=== PATIENT | female | born 1975 | race Caucasian/White ===

== ENCOUNTER 2018-05-13 17:52 | Inpatient (IN) | payer OTHER ==
--- NOTE | 2018-05-13 18:00 | PDOC ---
Rapid Medical Evaluation Time Seen by Provider: 05/13/18 17:57 Medical Evaluation: 05/13/18 17:57 43-year-old female with left 2nd finger laceration and crush injury after metal chair folded shut onto her finger. Deep laceration through nailbed, unable to flex at DIP. -Finger xray -Tetanus booster -To FT for further evaluation Discharge Disposition - Diagnosis Finger laceration - Referrals - Patient Instructions - Post Discharge Activity
[2018-05-13] MEDS ORDERED: IBUPROFEN 600 MG TABLET (FP) PO ONE ×2 (18:01→18:05)
[2018-05-13] MEDS ORDERED: DIPHTH,PERTUSS(ACELL),TET 0.5 ML DISP.SYRIN IM ONE (18:01)
--- NOTE | 2018-05-13 18:14 | PDOC ---
History of Present Illness - General Chief Complaint: Laceration Stated Complaint: LACERATION Time Seen by Provider: 05/13/18 17:57 History Source: Patient Exam Limitations: No Limitations - History of Present Illness Initial Comments: Patient is a 43-year-old female who is accompanied by a family member. She states that 20 minutes prior to arrival she got the distal aspect of her second digit right hand caught in a folding metal chair. She now has a laceration and pain to the distal aspect. She is right-hand dominant. Tetanus is not up-to- date. Patient describes the pain as a throb and rates it at a 10 out of 10. Denies taking analgesics prior to arrival. Denies any relieving factors however states that movement exacerbates her discomfort. Pt is currently undergoing oral therapy for breast CA. 05/13/18 18:10 05/13/18 19:09 Past History - Travel Traveled outside of the country in the last 30 days: No Close contact w/someone who was outside of country & ill: No - Past Medical History Allergies/Adverse Reactions: Allergies Allergy/AdvReac Type Severity Reaction Status Date / Time No Known Allergies Allergy Verified 05/13/18 18:00 Home Medications: Ambulatory Orders NK [No Known Home Medication] 05/13/18 COPD: No - Suicide/Smoking/Psychosocial Hx Smoking History: Never smoked Have you smoked in the past 12 months: No Information on smoking cessation initiated: No Hx Alcohol Use: No Drug/Substance Use Hx: No Substance Use Type: None Review of Systems - Review of Systems Able to Perform ROS?: Yes Constitutional: No: Chills, Fever All Other Systems: Reviewed and Negative *Physical Exam - Vital Signs Last Vital Signs Temp Pulse Resp BP Pulse Ox 98.3 F 77 18 143/84 100 05/13/18 18:00 05/13/18 18:00 05/13/18 18:00 05/13/18 18:00 05/13/18 18:00 - Physical Exam Comments: Constitutional: VS stated, pt appears in no apparent distress; sitting in chair. Skin: Warm and dry. Pt has a 3 cm laceration inferior to the nail bed on the second digit right hand. No active bleeding or signs of secondary infection. Head: Normocephalic; atraumatic Eyes: conjunctiva pink without injection or discharge. Throat: Oropharynx with pink and moist mucosa. Lungs: Bilateral breath sounds clear upon auscultation. No adventitious breath sounds. Heart: Regular rate and rhythm, S1/S2 auscultated. No murmurs, rubs, or gallops. No visible pulsations, heaves, or lifts on precordium. Musculoskeletal: Focused on the second digit right hand. Patient has moderate edema. No rotational deformity. Patient has pain upon palpation and decreased sensation to the distal phalanx. Radial pulse present, cap refill less than 2 seconds, sensation intact. Neurologic: Awake, alert. Conversation fluent. Psychiatric: Appropriate affect. 05/13/18 18:12 05/13/18 18:17 ED Treatment Course - RADIOLOGY Radiology Studies Ordered: 05/13/18 18:13 Pt's 2nd digit xray was reviewed by myself as open distal phalanx fracture and fracture of the middle phalanx. 05/13/18 18:50 05/13/18 19:01 - Medications Given in the ED: ED Medications Discontinued Medications Generic Name Dose Route Start Last Admin Trade Name Freq PRN Reason Stop Dose Admin Ibuprofen 600 mg 05/13/18 18:01 05/13/18 18:07 Motrin - PO 05/13/18 18:02 600 mg ONCE ONE Administration Medical Decision Making - Medical Decision Making Patient's tetanus was updated with Tdap IM. Patient was given Motrin at triage by the triage nurse. I do not feel this is ample pain control for the patient. Patient was given 1 Percocet. 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 No signs of anaphylaxis or ALLERGIC reaction. Due to the patient being immunocompromised and having an open fracture, she was given Ancef 2 g IV. She had no signs of anaphylaxis or ALLERGIC reaction. The patient was given Ancef 2 g IV. The patient needs a digital block, appropriate irrigation and suturing with splinting. I will sign out to Romel Garza NP. Please see his addendum. 05/13/18 18:14 05/13/18 19:12 *DC/Admit/Observation/Transfer Diagnosis at time of Disposition: Finger laceration, Open fracture of tuft of distal phalanx of finger - Referrals - Patient Instructions - Post Discharge Activity
[2018-05-13] MEDS ORDERED: ceFAZolin 2 GRAM PREMIX BAG IVPB ONE (20:00)
[2018-05-13 20:47] LABS: BASO % 0.6 % (0-2.0); EOS % 2.1 % (0-4.5); HEMATOCRIT 33.3 % (32.4-45.2); HEMOGLOBIN 11.1 GM/dL (10.7-15.3); LYMPH % 36.4 % (8-40); MCH 28.5 pg (25.7-33.7); MCHC 33.4 g/dl (32.0-36.0); MEAN CELL VOLUME 85.4 fl (80-96); MEAN PLT VOLUME 9.4 fl (7.5-11.1); MONO % 8.1 % (3.8-10.2); NEUT % 52.8 % (42.8-82.8); PLATELET COUNT 212 K/MM3 (134-434); RBC 3.89 M/mm3 (3.60-5.2); RDW 18.7 % (11.6-15.6); WHITE BLOOD COUNT 5.8 K/mm3 (4.0-10.0)
[2018-05-13 21:11] LABS: ALBUMIN 3.5 g/dl (3.4-5.0); ANION GAP 8 MMOL/L (8-16); BLOOD UREA NITROGEN 17 mg/dL (7-18); CALCIUM 8.4 mg/dL (8.5-10.1); CHLORIDE 111 mmol/L (98-107); CO2 24 mmol/L (21-32); CREATININE 0.6 mg/dL (0.55-1.02); GLUCOSE,RANDOM 106 mg/dL (74-106); POTASSIUM 3.9 mmol/L (3.5-5.1); SGOT/AST 28 U/L (15-37); SGPT/ALT 50 U/L (12-78); SODIUM 143 mmol/L (136-145)
[2018-05-13 21:13] LABS: ALK PHOS 117 U/L (45-117); BILIRUBIN,TOTAL 0.1 mg/dL (0.2-1.0); TOT PROT 7.2 g/dl (6.4-8.2)
[2018-05-13 21:14] LABS: INR 0.98 (0.83-1.09); PROTHROMBIN TIME (PATIENT) 11.1 SEC (9.7-13.0)
--- NOTE | 2018-05-13 22:19 | CONSULT ---
Consult Consult Specialty:: Hand and Microsurgery Reason for Consultation:: left index finger open fracture - History of Present Illness Chief Complaint: left index finger fracture History of Present Illness: 43 yo RHD female PMH Breast cancer on tamoxifen, who is accompanied by a family member, presents with She states that 20 minutes prior to arrival she got the distal aspect of her second digit right hand caught in a folding metal chair. She now has a laceration and pain to the distal aspect. She is right-hand dominant. Tetanus is not up-to-date. Patient describes the pain as a throb and rates it at a 10 out of 10. Denies taking analgesics prior to arrival. Denies any relieving factors however states that movement exacerbates her discomfort. Pt is currently undergoing oral therapy for breast CA. We were asked to assess - History Source History Provided By: Patient, Medical Record Limitations to Obtaining History: No Limitations - Past Medical History Additional Medical History: Breast cancer - Alcohol/Substance Use Hx Alcohol Use: No - Smoking History Smoking history: Never smoked Have you smoked in the past 12 months: No - Social History Usual Living Arrangement: With Spouse Place of : Other History of Recent Travel: No Home Medications - Allergies Allergies/Adverse Reactions: Allergies Allergy/AdvReac Type Severity Reaction Status Date / Time No Known Allergies Allergy Verified 05/13/18 18:00 - Home Medications Home Medications: Ambulatory Orders NK [No Known Home Medication] 05/13/18 Review of Systems - Review of Systems Constitutional: denies: Chills, Fever Eyes: denies: Blurred Vision, Recent Change in Vision HENT: reports: Difficult Swallowing Neck: denies: Pain on Movement, Stiffness Cardiovascular: denies: Chest Pain, Palpitations Respiratory: denies: Cough, SOB Gastrointestinal: denies: Abdominal Pain, Bloating, Constipation, Diarrhea Genitourinary: denies: Discharge, Dysuria Breasts: reports: No Symptoms Reported. denies: Pain Musculoskeletal: denies: Muscle Cramps, Muscle Weakness Integumentary: denies: Lesions, Lump, Rash Neurological: denies: Seizure, Syncope Endocrine: denies: Unexplained Weight Gain, Unexplained Weight Loss Hematology/Lymphatic: denies: Easily Bruised, Excessive Bleeding Psychiatric: denies: Anxiety, Depression Physical Exam Vital Signs: Vital Signs Temperature 98.3 F 05/13/18 18:00 Pulse Rate 77 05/13/18 18:00 Respiratory Rate 18 05/13/18 18:00 Blood Pressure 143/84 05/13/18 18:00 O2 Sat by Pulse Oximetry (%) 100 05/13/18 18:00 Vital Signs Period Temp Pulse Resp BP Sys/Smith Pulse Ox Last 24 Hr 98.3 F 77 18 143/84 99-100 Constitutional: Yes: Well Nourished, No Distress, Calm Eyes: Yes: Conjunctiva Clear, EOM Intact HENT: Yes: Atraumatic, Normocephalic Neck: Yes: Supple, Trachea Midline Cardiovascular: Yes: Regular Rate and Rhythm, S1, S2 Respiratory: Yes: Regular, CTA Bilaterally Gastrointestinal: Yes: Normal Bowel Sounds, Soft. No: Tenderness ...Rectal Exam: Yes: Deferred Renal/: No: CVA Tenderness - Left, CVA Tenderness - Right Musculoskeletal: Yes: Joint Stiffness (left index finger), Joint Swelling Extremities: No: Cool, Cyanosis Edema: No Edema: LUE: 2+ Peripheral Pulses WNL: Yes Integumentary: No: Incision, Jaundice Wound/Incision: Yes: Unapproximated (left index finegr DIP joint open fracture) Neurological: Yes: Alert, Oriented Psychiatric: Yes: Alert, Oriented Labs: CBC, BMP 05/13/18 20:30 05/13/18 20:30 Imaging - Results X-ray: Report Reviewed, Image Reviewed (left index finger basalar frature distal phalanx condylar fracture middle phalanx) Problem List - Problems (1) Crushing injury of left index finger, initial encounter Assessment/Plan: 43yo female with left index finger crush dislocation of distal interphalangeal joint with distal and middle phalanx fractures and nail matrix avulsion NPO and IVF hydration IV antibiotics ORIF of left index finger Discussed with patient risks, benefits and alternatives of aforementioned procedure, including but not limited to bleeding, infection, injury to adjacent structures, need for further procedures, ; alternatives include antibiotics , delayed or no surgery - risks of this include failure of nonoperative therapy , sepsis, recurrence, .Patient desires to proceed with operation - will take to OR for above. Informed consent signed for same. Thank you for the opportunity to participate in the care of this patient. Code(s): S67.191A - CRUSHING INJURY OF LEFT INDEX FINGER, INITIAL ENCOUNTER (2) Finger laceration Code(s): S61.219A - LACERATION W/O FB OF UNSP FINGER W/O DAMAGE TO NAIL, INIT Qualifiers: Encounter type: initial encounter Finger: index finger Damage to nail status: with damage Foreign body presence: without foreign body Laterality: left Qualified Code(s): S61.311A - Laceration without foreign body of left index finger with damage to nail, initial encounter (3) Open fracture of tuft of distal phalanx of finger Code(s): S62.639B - DISP FX OF DISTAL PHALANX OF UNSP FINGER, INIT FOR OPN FX (4) Dislocation of distal interphalangeal (DIP) joint of left index finger Code(s): S63.291A - DISLOCATION OF DISTAL INTERPHALN JOINT OF L IDX FNGR, INIT Qualifiers: Encounter type: initial encounter Qualified Code(s): S63.291A - Dislocation of distal interphalangeal joint of left index finger, initial encounter
--- NOTE | 2018-05-13 22:22 | OP ---
Operative Note - Note: Operative Date: 05/13/18 Pre-Operative Diagnosis: open fracture of left index distal and middle phalanx Operation: open reduction and internal fixation of left index distal and middle phalanx with wolfgang wire Findings: displaced and comminuted base fracture distal phalanx and subcondylar middle phalanx. nail matrix disrupted. Implants: 0.45 K wire X1 Post-Operative Diagnosis: Same as Pre-op Surgeon: Burke Miranda Anesthesiologist/RESIDENT CARE COORDINATOR: Nikky Millan Anesthesia: General, Local (0.5% marcaine 10ml digital block) Estimated Blood Loss (mls): 2 Fluid Volume Replaced (mls): 500 Operative Report Dictated: Yes
--- NOTE | 2018-05-13 22:40 | PN ---
Teaching Attending Note Name of Resident: Yung Abbott ATTENDING PHYSICIAN STATEMENT I saw and evaluated the patient. I reviewed the resident's note and discussed the case with the resident. I agree with the resident's findings and plan as documented. SUBJECTIVE: Patient is a 43 year old woman on Tamoxifen for breast cancer presents to the with the complaint that 20 minutes prior to arrival she got the distal aspect of her second digit right hand caught in a folding metal chair. She sustained a laceration and pain to the distal aspect of the finger. Her tetanus immunization is not up-to-date. Patient describes the pain as a throbbing and rates it at a 10 out of 10. Denies taking analgesics prior to arrival. Denies any relieving factors however states that movement exacerbates her discomfort. She is being evaluated by the surgeon. OBJECTIVE: Alert Vital Signs Period Temp Pulse Resp BP Sys/Smith Pulse Ox Last 24 Hr 98.3 F 77 18 143/84 100 HEENT: No Jaundice, eye redness or discharge, PERRLA, EOMI. Normocephalic, atraumatic. External ears are normal and hearing is grossly intact. No nasal discharge. Neck: Supple, nontender. No palpable adenopathy or thyromegaly. No JVD Chest: Good effort. Clear to auscultation and percussion. Heart: Regular. No S3, rub or murmur Abdomen: Not distended, soft, nontender and no HSM. No rebound or guarding. Normoactive bowel sounds. Ext: Peripheral pulses intact. No leg edema. Laceration of distal right 2nd finger with open fracture. Skin: Warm and dry. No petechiae, rash or ecchymosis. Neuro: Alert. Oriented x3. CN 2-12 grossly intact. Sensation grossly intact in all four extremities and DTR are symmetric. Home Medications Medication Instructions Recorded NK [No Known Home Medication] 05/13/18 Abnormal Lab Results 05/13/18 05/13/18 20:30 20:30 RDW 18.7 H Chloride 111 H Calcium 8.4 L Total Bilirubin 0.1 L ASSESSMENT AND PLAN: 1. Right 2nd Finger fracture and laceration - Patient is being taken to the OR for surgery. Got DTP vaccination and antibiotics in the ER. Will continue pain control. 2. DVT prophylaxis - Lovenox 40 mg SQ q 24 hours. 3. Advance directives - Full code
[2018-05-13] MEDS ORDERED: PROPOFOL 20 ML ONE (23:29)
[2018-05-14] MEDS ORDERED: DEXAMETHASONE SOD PHOSPHATE 4 MG/1 ML VIAL ONE
[2018-05-14] MEDS ORDERED: BUPIVACAINE HCL/PF (5 MG/ML) 30 ML VIAL IJ ONE (00:05)
[2018-05-14] MEDS ORDERED: morphine SULFATE 4 MG/ML VIAL IVPUSH PRN (00:54)
[2018-05-14] MEDS ORDERED: ACETAMINOPHEN 325 MG TABLET (FP) PO PRN ×2 (00:55→01:11)
[2018-05-14] MEDS ORDERED: IBUPROFEN 600 MG TABLET (FP) PO PRN (00:55)
[2018-05-14] MEDS ORDERED: AMPICILLIN NA/SULBACTAM NA 3 GM in SODIUM CHLORIDE 100 ML IVPB SCH (02:00)
[2018-05-14] MEDS: AMPICILLIN NA/SULBACTAM NA 3 GM in SODIUM CHLORIDE 100 ML IVPB SCH ×3 (02:36→18:27)
--- NOTE | 2018-05-14 05:09 | HP ---
CHIEF COMPLAINT: Left index finger fracture PCP: Dr. Mejias HISTORY OF PRESENT ILLNESS: 43 y/o, primarily Swedish speaking female with a PMHx of Left breast cancer on Tamoxifen presents after trapping her Left index finger in a metal folding chair. History was partially provided by the patients daughter. Patient pulled out her chair at work and it began to fall/collapse, when she reached to intervene her Left index finger became trapped in the chair. Patient says it started to bleed at that time. It was additionally accompanied by 10/10 sharp pain over the DIP joint that traveled up to her shoulder. Pain increased with movement and she felt loss of feeling in the finger at that time. She did not try anything to relieve the pain and visited the ED. Denies fevers, chills, chest pain, SOB, nausea, vomiting, diarrhea, constipation. Patient was unsure of her Last TDap. She was seen post-op without any complaints. She was not in pain at that time. Of note, Her LMP ended on 04/27. ER course was notable for: (1) XRay left index finger (2) Given percocet x1, TDap, Ancef 2gm (3) Surgery (Dr. 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 [employer] Family History: Denies Allergies No Known Allergies Allergy (Verified 05/13/18 18:00) HOME MEDICATIONS: Home Medications Medication Instructions Recorded NK [No Known Home Medication] 05/13/18 REVIEW OF SYSTEMS CONSTITUTIONAL: Absent: fever, chills, diaphoresis, generalized weakness, malaise, loss of appetite, weight change HEENT: Absent: rhinorrhea, nasal congestion, throat pain, throat swelling, difficulty swallowing, mouth swelling, ear pain, eye pain, visual changes CARDIOVASCULAR: Absent: chest pain, syncope, palpitations, irregular heart rate, lightheadedness , peripheral edema RESPIRATORY: Absent: cough, shortness of breath, dyspnea with exertion, orthopnea, wheezing, stridor, hemoptysis GASTROINTESTINAL: Absent: abdominal pain, abdominal distension, nausea, vomiting, diarrhea, constipation, melena, hematochezia GENITOURINARY: Absent: dysuria, frequency, urgency, hesitancy, hematuria, flank pain, genital pain MUSCULOSKELETAL: Present: Left Index finger pain, Joint swelling Absent: myalgia, arthralgia, back pain, neck pain SKIN: Absent: rash, itching, pallor HEMATOLOGIC/IMMUNOLOGIC: Absent: easy bleeding, easy bruising, lymphadenopathy, frequent infections ENDOCRINE: Absent: unexplained weight gain, unexplained weight loss, heat intolerance, cold intolerance NEUROLOGIC: Absent: headache, focal weakness or paresthesias, dizziness, unsteady gait, seizure, mental status changes, bladder or bowel incontinence PSYCHIATRIC: Absent: anxiety, depression, suicidal or homicidal ideation, hallucinations. PHYSICAL EXAMINATION Vital Signs - 24 hr 05/13/18 05/13/18 05/14/18 18:00 20:30 00:21 Temperature 98.3 F 98.8 F Pulse Rate 77 89 Respiratory 18 20 Rate Blood Pressure 143/84 121/60 O2 Sat by Pulse 100 99 99 Oximetry (%) 05/14/18 05/14/18 05/14/18 00:35 00:50 01:05 Temperature Pulse Rate 78 66 65 Respiratory 16 16 16 Rate Blood Pressure 112/54 112/58 117/59 O2 Sat by Pulse 95 95 95 Oximetry (%) 05/14/18 01:15 Temperature 98.5 F Pulse Rate 65 Respiratory 16 Rate Blood Pressure 111/58 O2 Sat by Pulse Oximetry (%) GENERAL: Awake, alert, and fully oriented, in no acute distress. EYES: PERRL, EOMI THROAT: Oropharynx clear without exudates. Moist mucous membranes. NECK: Supple, No JVD LUNGS: Breath sounds equal, clear to auscultation bilaterally. No wheezes, no crackles. HEART: Regular rate and rhythm, normal S1 and S2 without murmur. ABDOMEN: Soft, nontender, not distended, normoactive bowel sounds, no guarding. UPPER EXTREMITIES: Left Upper extremity wrapped in bandaged post-op, Unable to assess for sensation, pulses or muscle strength. LOWER EXTREMITIES: 2+ pulses, No calf tenderness. 1+ peripheral edema. NEUROLOGICAL: Cranial nerves II-XII intact. Normal speech. SKIN: Warm, dry, no rashes or lesions noted. Laboratory Results - last 24 hr 05/13/18 05/13/18 05/13/18 20:30 20:30 20:30 WBC 5.8 RBC 3.89 Hgb 11.1 Hct 33.3 MCV 85.4 MCH 28.5 MCHC 33.4 RDW 18.7 H Plt Count 212 MPV 9.4 Absolute Neuts (auto) 3.0 Neutrophils % 52.8 Lymphocytes % 36.4 Monocytes % 8.1 Eosinophils % 2.1 Basophils % 0.6 Nucleated RBC % 0 PT with INR 11.10 INR 0.98 Sodium 143 Potassium 3.9 Chloride 111 H Carbon Dioxide 24 Anion Gap 8 BUN 17 Creatinine 0.6 Creat Clearance w eGFR > 60 Random Glucose 106 Calcium 8.4 L Total Bilirubin 0.1 L AST 28 ALT 50 Alkaline Phosphatase 117 Total Protein 7.2 Albumin 3.5 Urine HCG, Qual Blood Type Antibody Screen 05/13/18 05/13/18 20:50 21:40 WBC RBC Hgb Hct MCV MCH MCHC RDW Plt Count MPV Absolute Neuts (auto) Neutrophils % Lymphocytes % Monocytes % Eosinophils % Basophils % Nucleated RBC % PT with INR INR Sodium Potassium Chloride Carbon Dioxide Anion Gap BUN Creatinine Creat Clearance w eGFR Random Glucose Calcium Total Bilirubin AST ALT Alkaline Phosphatase Total Protein Albumin Urine HCG, Qual Negative Blood Type O POSITIVE Antibody Screen Negative Active Medications Acetaminophen (Tylenol -) 650 mg PO Q6H PRN PRN Reason: PAIN LEVEL 1-5 Enoxaparin Sodium (Lovenox -) 40 mg SQ DAILY KAMRAN Ampicillin Sodium/Sulbactam (Sodium 3 gm/ Sodium Chloride) 100 mls @ 200 mls/ hr IVPB Q8H-IV KAMRAN Last Admin: 05/14/18 02:36 Dose: 200 mls/hr Ibuprofen (Motrin -) 600 mg PO Q6H PRN PRN Reason: PAIN LEVEL 1-5 Insulin Aspart (Novolog Vial Sliding Scale -) 1 vial SQ ACHS [facility]; Protocol Morphine Sulfate (Morphine Sulfate) 4 mg IVPUSH Q4H PRN PRN Reason: PAIN LEVEL 7 - 10 ASSESSMENT/PLAN: 43 y/o, primarily Swedish speaking female with a PMHx of Left breast cancer on Tamoxifen presents after trapping her Left index finger in a metal folding chair s/p Left index distal and middle phalanx ORIF POD #0. 1. Left index distal and middle phalanx ORIF POD #0 - Left index finger XRay Done - Surgery (Dr. Miranda) Consulted - TDap given in ED - Ancef 2gm - Pain Control via Tylenol, Motrin, Morphine - Will follow other surgery rec's 2. Left Breast Cancer on Tamoxifen - Will Continue Tamoxifen once med rec'ed 3. FEN - PO Fluids - Lytes WNL - Regular diet 4. PPx - DVT: Lovenox 40mg SQ Daily Dispo: Admit to Med-Surg Visit type - Emergency Visit Emergency Visit: Yes ED Registration Date: 05/13/18 Care time: The patient presented to the Emergency Department on the above date and was hospitalized for further evaluation of their emergent condition. - New Patient This patient is new to me today: Yes Date on this admission: 05/14/18 - Critical Care Critical Care patient: No Hospitalist Screening - Colonoscopy Questionnaire Colonoscopy Questionnaire: Colonoscopy Questionnaire - Patient: 50 - 75 years old and never had a screening colonoscopy: Unknown History of colon or rectal polyps, or CA: Unknown History of IBD, Crohn's disease or UC: Unknown History of abdominal radiation therapy as a child: Unknown - Relative: 1 with colon or rectal CA, or polyps at age 60 or younger: Unknown Colon or rectal CA diagnosed at age 45 or younger: Unknown Multiple relatives with colon or rectal CA: Unknown - Outcome: Screening Result: Negative Screen
[2018-05-14 05:16] VITALS: BMI 41.2
[2018-05-14] MEDS ORDERED: INSULIN SLIDING SCALE (NOVOLOG) 1 VIAL SQ SCH (07:00)
--- NOTE | 2018-05-14 08:16 | PN ---
Progress Note (short form) - Note Progress Note: Post op day#1.S/p ORIF Of left index finger under GA uneventful.Patient stable.No any anesthesia related problem.Patient DC from the anesthesia care.
[2018-05-14] MEDS: ENOXAPARIN NA (PORCINE) 40 MG/0.4 ML DISP.SYRIN SQ SCH (09:54)
[2018-05-14 10:31] LABS: BASO % 0.1 % (0-2.0); HEMATOCRIT 34.9 % (32.4-45.2); HEMOGLOBIN 11.6 GM/dL (10.7-15.3); MCH 28.4 pg (25.7-33.7); MCHC 33.2 g/dl (32.0-36.0); MEAN CELL VOLUME 85.6 fl (80-96); MEAN PLT VOLUME 9.5 fl (7.5-11.1); MONO % 1.6 % (3.8-10.2); NEUT % 85.3 % (42.8-82.8); PLATELET COUNT 215 K/MM3 (134-434); RBC 4.08 M/mm3 (3.60-5.2); WHITE BLOOD COUNT 6.7 K/mm3 (4.0-10.0)
[2018-05-14 10:57] LABS: ALBUMIN 3.4 g/dl (3.4-5.0); ALK PHOS 106 U/L (45-117); ANION GAP 7 MMOL/L (8-16); BILIRUBIN,TOTAL 0.2 mg/dL (0.2-1.0); BLOOD UREA NITROGEN 12 mg/dL (7-18); CALCIUM 8.8 mg/dL (8.5-10.1); CHLORIDE 107 mmol/L (98-107); CO2 24 mmol/L (21-32); CREATININE 0.6 mg/dL (0.55-1.02); GLUCOSE,RANDOM 192 mg/dL (74-106); MAGNESIUM 2.3 mg/dL (1.8-2.4); PHOSPHOROUS 3.3 mg/dL (2.5-4.9); POTASSIUM 4.1 mmol/L (3.5-5.1); SGOT/AST 26 U/L (15-37); SGPT/ALT 44 U/L (12-78); SODIUM 138 mmol/L (136-145); TOT PROT 7.1 g/dl (6.4-8.2)
--- NOTE | 2018-05-14 15:17 | PN ---
Teaching Attending Note Name of Resident: Mohan Siddiqui ATTENDING PHYSICIAN STATEMENT I saw and evaluated the patient. I reviewed the resident's note and discussed the case with the resident. I agree with the resident's findings and plan as documented. SUBJECTIVE: No pain at this point. No fever or chills. pain in upper back last night and this am , bit not at time of evaluation . no fever or chills . OBJECTIVE: NAD. awake and cooperative Lungs: CTAB Lungs: CTAB ext : L hand and forearm in surgical dressing . L thumb out, and can move it and has full sensation to light touch in it . TTP over mid T spine and paraspinal muscles in same area ASSESSMENT AND PLAN: 43 y/o lady with h/o breast cancer s/p lumpectomy , and now on tamoxifen who presented with pain in second toe and was found to have a fracture in middle and distal phalanxes 1- Open fracture of L 2nd middle and distal phalanxes; S/P ORIF - cont IV Abx - case d/w dr. Donovan, MRSA coverage might need to be added. will consult - pain control 2- Upper back pain: likely form positinin bed, but will get xray as has h/o breast cancer 3- H/o breast cancer. confirm and resume her dose of tamoxifen DVT PX: lovenox
--- NOTE | 2018-05-14 15:38 | CON.ID ---
Consult Consult Specialty:: infectious diseases Referred by:: Reason for Consultation:: wound infection - History of Present Illness Chief Complaint: pain i the hand,post op History of Present Illness: 43 yo RHD female PMH Breast cancer on tamoxifen who was admitted because of injry to the finger and suffered a laceration patient was seen by hand surgery and taken to the operating room and it seems pus was drained from the wound post op now patient is doing well. she has been started on unasyn and patient has been stable patient on oral therapy for cancer - History Source History Provided By: Patient, Medical Record Limitations to Obtaining History: Language Barrier - Past Medical History Additional Medical History: Breast cancer - Alcohol/Substance Use Hx Alcohol Use: No - Smoking History Smoking history: Never smoked Have you smoked in the past 12 months: No - Social History Usual Living Arrangement: With Spouse History of Recent Travel: No Home Medications - Allergies Allergies/Adverse Reactions: Allergies Allergy/AdvReac Type Severity Reaction Status Date / Time No Known Allergies Allergy Verified 05/13/18 18:00 - Home Medications Home Medications: Ambulatory Orders Tamoxifen Citrate 05/15/18 Review of Systems - Review of Systems Constitutional: reports: No Symptoms Eyes: reports: No Symptoms HENT: reports: No Symptoms Neck: reports: No Symptoms Cardiovascular: reports: No Symptoms Respiratory: reports: No Symptoms Gastrointestinal: reports: No Symptoms Genitourinary: reports: No Symptoms Musculoskeletal: reports: Other Integumentary: reports: Other Neurological: reports: No Symptoms Endocrine: reports: No Symptoms Hematology/Lymphatic: reports: No Symptoms Psychiatric: reports: No Symptoms Physical Exam Vital Signs: Vital Signs Temperature 99.0 F 05/14/18 15:08 Pulse Rate 83 05/14/18 15:08 Respiratory Rate 18 05/14/18 15:08 Blood Pressure 148/80 05/14/18 15:08 O2 Sat by Pulse Oximetry (%) 98 05/14/18 06:00 Constitutional: Yes: No Distress, Calm Cardiovascular: Yes: Regular Rate and Rhythm Respiratory: Yes: Regular, CTA Bilaterally Gastrointestinal: Yes: Normal Bowel Sounds, Soft Musculoskeletal: Yes: WNL Extremities: Yes: Other Wound/Incision: Yes: Dressing Dry and Intact Neurological: Yes: Alert, Oriented Psychiatric: Yes: Alert, Oriented Labs: CBC, BMP 05/14/18 10:00 05/14/18 10:00 Imaging - Results Chest X-ray: Report Reviewed, Image Reviewed X-ray: Report Reviewed, Image Reviewed Assessment/Plan Problem List - Problems (1) Crushing injury of left index finger, initial encounter Code(s): S67.191A - CRUSHING INJURY OF LEFT INDEX FINGER, INITIAL ENCOUNTER (2) Finger laceration Code(s): S61.219A - LACERATION W/O FB OF UNSP FINGER W/O DAMAGE TO NAIL, INIT Qualifiers: Encounter type: initial encounter Finger: index finger Damage to nail status: with damage Foreign body presence: without foreign body Laterality: left Qualified Code(s): S61.311A - Laceration without foreign body of left index finger with damage to nail, initial encounter (3) Open fracture of tuft of distal phalanx of finger Code(s): S62.639B - DISP FX OF DISTAL PHALANX OF UNSP FINGER, INIT FOR OPN FX (4) Dislocation of distal interphalangeal (DIP) joint of left index finger Code(s): S63.291A - DISLOCATION OF DISTAL INTERPHALN JOINT OF L IDX FNGR, INIT Qualifiers: Encounter type: initial encounter Qualified Code(s): S63.291A - Dislocation of distal interphalangeal joint of left index finger, initial encounter plan continue unasyn will add clinda await for cx report rest as per the team
--- NOTE | 2018-05-14 16:22 | PN ---
Physical Exam: SUBJECTIVE: Patient seen and examined at bedside. No acute complaints s/p ORIF of L index finger. Good appetite. Urinating and passing flatus, no BM as yet. Additionally complains of thoracic spinal pain. OBJECTIVE: Vital Signs Period Temp Pulse Resp BP Sys/Smith Pulse Ox Last 24 Hr 98.3 F-99.3 F 65-89 16-20 111-148/54-84 95-100 GENERAL: A&Ox3, NAD HEAD: NC/AT EYES: PERRLA, EOMI ENT: moist mucous membranes NECK: Trachea midline, full range of motion, supple. LUNGS: Breath sounds equal, clear to auscultation bilaterally, no wheezes, no crackles, no accessory muscle use. HEART: Regular rate and rhythm, S1, S2 without murmur, rub or gallop. ABDOMEN: Soft, nontender, nondistended, normoactive bowel sounds, no guarding, no rebound, no hepatosplenomegaly, no masses. MUSCULOSKELETAL: focal tenderness of T-spine approximately T2-3. EXTREMITIES: 2+ pulses, warm, well-perfused, no edema. Surgical dressing of L distal UE. NEUROLOGICAL: Cranial nerves II through XII grossly intact. Normal speech, gait not observed. PSYCH: Normal mood, normal affect. SKIN: Warm, dry, normal turgor, no rashes or lesions noted Laboratory Results - last 24 hr 05/13/18 05/13/18 05/13/18 20:30 20:30 20:30 WBC 5.8 RBC 3.89 Hgb 11.1 Hct 33.3 MCV 85.4 MCH 28.5 MCHC 33.4 RDW 18.7 H Plt Count 212 MPV 9.4 Absolute Neuts (auto) 3.0 Neutrophils % 52.8 Lymphocytes % 36.4 Monocytes % 8.1 Eosinophils % 2.1 Basophils % 0.6 Nucleated RBC % 0 PT with INR 11.10 INR 0.98 Sodium 143 Potassium 3.9 Chloride 111 H Carbon Dioxide 24 Anion Gap 8 BUN 17 Creatinine 0.6 Creat Clearance w eGFR > 60 POC Glucometer Random Glucose 106 Calcium 8.4 L Phosphorus Magnesium Total Bilirubin 0.1 L AST 28 ALT 50 Alkaline Phosphatase 117 Total Protein 7.2 Albumin 3.5 Urine HCG, Qual Blood Type Antibody Screen 05/13/18 05/13/18 05/14/18 20:50 21:40 05:56 WBC RBC Hgb Hct MCV MCH MCHC RDW Plt Count MPV Absolute Neuts (auto) Neutrophils % Lymphocytes % Monocytes % Eosinophils % Basophils % Nucleated RBC % PT with INR INR Sodium Potassium Chloride Carbon Dioxide Anion Gap BUN Creatinine Creat Clearance w eGFR POC Glucometer 155 Random Glucose Calcium Phosphorus Magnesium Total Bilirubin AST ALT Alkaline Phosphatase Total Protein Albumin Urine HCG, Qual Negative Blood Type O POSITIVE Antibody Screen Negative 05/14/18 05/14/18 10:00 10:00 WBC 6.7 RBC 4.08 Hgb 11.6 Hct 34.9 MCV 85.6 MCH 28.4 MCHC 33.2 RDW 19.0 H Plt Count 215 MPV 9.5 Absolute Neuts (auto) 5.7 Neutrophils % 85.3 H D Lymphocytes % 13.0 D Monocytes % 1.6 L D Eosinophils % 0.0 D Basophils % 0.1 Nucleated RBC % 0 PT with INR INR Sodium 138 Potassium 4.1 Chloride 107 Carbon Dioxide 24 Anion Gap 7 L BUN 12 Creatinine 0.6 Creat Clearance w eGFR > 60 POC Glucometer Random Glucose 192 H Calcium 8.8 Phosphorus 3.3 Magnesium 2.3 Total Bilirubin 0.2 AST 26 ALT 44 Alkaline Phosphatase 106 D Total Protein 7.1 Albumin 3.4 Urine HCG, Qual Blood Type Antibody Screen Active Medications Generic Name Dose Route Start Last Admin Trade Name Freq PRN Reason Stop Dose Admin Acetaminophen 650 mg 05/14/18 01:11 Tylenol - PO Q6H PRN PAIN LEVEL 1-5 Clindamycin HCl 300 mg 05/14/18 18:00 Cleocin - PO Q6HPO KAMRAN Enoxaparin Sodium 40 mg 05/14/18 10:00 05/14/18 09:54 Lovenox - SQ 40 mg DAILY KAMRAN Administration Ampicillin Sodium/Sulbactam 100 mls @ 200 mls/hr 05/14/18 02:00 05/14/18 09: 54 Sodium 3 gm/ Sodium Chloride IVPB 200 mls/hr Q8H-IV KAMRAN Administration Ibuprofen 600 mg 05/14/18 01:11 Motrin - PO Q6H PRN PAIN LEVEL 1-5 Morphine Sulfate 4 mg 05/14/18 01:11 Morphine Sulfate IVPUSH Q4H PRN PAIN LEVEL 7 - 10 ASSESSMENT/PLAN: 43 y/o F w/ PMHx L breast Ca s/p lumpectomy w/o RT on Tamoxifen since Jun 03 admitted for open Fx of left index finger s/p ORIF. #L index finger ORIF POD #0 -Dr. Miranda on case -TDap in ED -On Unasyn, requires 3-[address] Miranda -Tylenol, Motrin -Morphine 4 mg q4 PRN #L Breast Ca on Tamoxifen -thoracic spinal tenderness noted on exam -T-spine XR ordered -MRI T-spine if XR negative -cont Tamoxifen #fasting glucose 155 -HbA1c ordered #FEN -no IVF -lytes wnl -regular diet #DVT PPx -Lovenox 40 SQ daily #dispo -med/surg Visit type - Emergency Visit Emergency Visit: No - New Patient This patient is new to me today: Yes Date on this admission: 05/14/18 - Critical Care Critical Care patient: No
[2018-05-14] MEDS ORDERED: PT OWN MED DRAWER 7, Y5N ONE (18:12)
[2018-05-14] MEDS: CLINDAMYCIN HCL 150 MG CAPSULE (FP) PO SCH (18:27)
--- NOTE | 2018-05-14 19:09 | PN ---
Progress Note, Physician Chief Complaint: left index finger History of Present Illness: 43 yo RHD female PMH Breast cancer on tamoxifen, who is accompanied by a family member, presents with She states that 20 minutes prior to arrival she got the distal aspect of her second digit right hand caught in a folding metal chair. stable post operatively. - Current Medication List Current Medications: Active Medications Acetaminophen (Tylenol -) 650 mg PO Q6H PRN PRN Reason: PAIN LEVEL 1-5 Clindamycin HCl (Cleocin -) 300 mg PO Q6HPO KAMRAN Last Admin: 05/14/18 18:27 Dose: 300 mg Enoxaparin Sodium (Lovenox -) 40 mg SQ DAILY KAMRAN Last Admin: 05/14/18 09:54 Dose: 40 mg Ampicillin Sodium/Sulbactam (Sodium 3 gm/ Sodium Chloride) 100 mls @ 200 mls/ hr IVPB Q8H-IV KAMRAN Last Admin: 05/14/18 18:27 Dose: 200 mls/hr Ibuprofen (Motrin -) 600 mg PO Q6H PRN PRN Reason: PAIN LEVEL 1-5 Morphine Sulfate (Morphine Sulfate) 4 mg IVPUSH Q4H PRN PRN Reason: PAIN LEVEL 7 - 10 - Objective Vital Signs: Vital Signs Temperature 99.0 F 05/14/18 15:08 Pulse Rate 83 05/14/18 15:08 Respiratory Rate 18 05/14/18 15:08 Blood Pressure 148/80 05/14/18 15:08 O2 Sat by Pulse Oximetry (%) 96 05/14/18 09:00 Vital Signs Period Temp Pulse Resp BP Sys/Smith Pulse Ox Last 24 Hr 98.4 F-99.3 F 65-89 16-20 111-148/54-84 95-99 Constitutional: Yes: Well Nourished, No Distress, Calm Eyes: Yes: Conjunctiva Clear, EOM Intact HENT: Yes: Atraumatic, Normocephalic Neck: Yes: Supple, Trachea Midline Cardiovascular: Yes: Regular Rate and Rhythm, S1, S2 Respiratory: Yes: Regular, CTA Bilaterally Gastrointestinal: Yes: Normal Bowel Sounds, Soft. No: Tenderness ...Rectal Exam: Yes: Deferred Genitourinary: No: CVA Tenderness - Left, CVA Tenderness - Right Extremities: No: Cool, Cyanosis Wound/Incision: Yes: Clean/Dry, Well Approximated, Dressing Dry and Intact Labs: CBC, BMP 05/14/18 10:00 05/14/18 10:00 INR, PTT INR 0.98 (0.83-1.09) 05/13/18 20:30 Problem List - Problems (1) Crushing injury of left index finger, initial encounter Assessment/Plan: 43yo female with left index finger crush dislocation of distal interphalangeal joint with distal and middle phalanx fractures and nail matrix avulsion POD#1 s/ p ORIF of left index finger open fractures. Diet as tolerated IV antibiotics per ID encourage incentive spirometry elevation of Arm above the heart Will follow Code(s): S67.191A - CRUSHING INJURY OF LEFT INDEX FINGER, INITIAL ENCOUNTER (2) Finger laceration Code(s): S61.219A - LACERATION W/O FB OF UNSP FINGER W/O DAMAGE TO NAIL, INIT Qualifiers: Encounter type: initial encounter Finger: index finger Damage to nail status: with damage Foreign body presence: without foreign body Laterality: left Qualified Code(s): S61.311A - Laceration without foreign body of left index finger with damage to nail, initial encounter (3) Open fracture of tuft of distal phalanx of finger Code(s): S62.639B - DISP FX OF DISTAL PHALANX OF UNSP FINGER, INIT FOR OPN FX (4) Dislocation of distal interphalangeal (DIP) joint of left index finger Code(s): S63.291A - DISLOCATION OF DISTAL INTERPHALN JOINT OF L IDX FNGR, INIT Qualifiers: Encounter type: initial encounter Qualified Code(s): S63.291A - Dislocation of distal interphalangeal joint of left index finger, initial encounter
[2018-05-14] MEDS: morphine SULFATE 4 MG/ML VIAL IVPUSH PRN (21:28)
[2018-05-15] MEDS: CLINDAMYCIN HCL 150 MG CAPSULE (FP) PO SCH ×5 (00:01→23:28)
[2018-05-15] MEDS ORDERED: PT OWN MED DRAWER 7, Y5N ONE ×2 (01:20→17:08)
[2018-05-15] MEDS: AMPICILLIN NA/SULBACTAM NA 3 GM in SODIUM CHLORIDE 100 ML IVPB SCH ×3 (01:29→17:27)
[2018-05-15] MEDS: morphine SULFATE 4 MG/ML VIAL IVPUSH PRN ×2 (06:37→22:17)
[2018-05-15 07:54] LABS: BASO % 0.5 % (0-2.0); EOS % 0.6 % (0-4.5); HEMATOCRIT 33.2 % (32.4-45.2); LYMPH % 40.4 % (8-40); MCH 28.2 pg (25.7-33.7); MEAN CELL VOLUME 85.4 fl (80-96); MEAN PLT VOLUME 9.2 fl (7.5-11.1); MONO % 6.6 % (3.8-10.2); NEUT % 51.9 % (42.8-82.8); PLATELET COUNT 185 K/MM3 (134-434); RBC 3.89 M/mm3 (3.60-5.2); WHITE BLOOD COUNT 7.3 K/mm3 (4.0-10.0)
[2018-05-15 08:43] LABS: CHLORIDE 109 mmol/L (98-107); SODIUM 139 mmol/L (136-145)
[2018-05-15 08:49] LABS: ANION GAP 7 MMOL/L (8-16); BLOOD UREA NITROGEN 12 mg/dL (7-18); CO2 23 mmol/L (21-32); CREATININE 0.5 mg/dL (0.55-1.02); GLUCOSE,RANDOM 110 mg/dL (74-106)
--- NOTE | 2018-05-15 09:09 | PN ---
Teaching Attending Note Name of Resident: Mohan Siddiqui ATTENDING PHYSICIAN STATEMENT I saw and evaluated the patient. I reviewed the resident's note and discussed the case with the resident. I agree with the resident's findings and plan as documented. SUBJECTIVE: Patient has no fever or chills or shortness of breath, no fever or chills. OBJECTIVE: Vital Signs Temperature 98.8 F 05/15/18 06:00 Pulse Rate 65 05/15/18 06:00 Respiratory Rate 20 05/15/18 06:00 Blood Pressure 102/51 05/15/18 06:00 O2 Sat by Pulse Oximetry (%) 97 05/14/18 21:00 CBCD WBC 7.3 K/mm3 (4.0-10.0) 05/15/18 06:30 RBC 3.89 M/mm3 (3.60-5.2) 05/15/18 06:30 Hgb 11.0 GM/dL (10.7-15.3) 05/15/18 06:30 Hct 33.2 % (32.4-45.2) 05/15/18 06:30 MCV 85.4 fl (80-96) 05/15/18 06:30 MCHC 33.0 g/dl (32.0-36.0) 05/15/18 06:30 RDW 19.0 % (11.6-15.6) H 05/15/18 06:30 Plt Count 185 K/MM3 (134-434) 05/15/18 06:30 MPV 9.2 fl (7.5-11.1) 05/15/18 06:30 CMP Sodium 139 mmol/L (136-145) 05/15/18 06:30 Potassium 4.0 mmol/L (3.5-5.1) 05/15/18 06:30 Chloride 109 mmol/L (98-107) H 05/15/18 06:30 Carbon Dioxide 23 mmol/L (21-32) 05/15/18 06:30 Anion Gap 7 MMOL/L (8-16) L 05/15/18 06:30 BUN 12 mg/dL (7-18) 05/15/18 06:30 Creatinine 0.5 mg/dL (0.55-1.02) L 05/15/18 06:30 Creat Clearance w eGFR > 60 (>60) 08/29/18 06:30 Random Glucose 110 mg/dL (74-106) H 05/15/18 06:30 Calcium 8.0 mg/dL (8.5-10.1) L 05/15/18 06:30 Total Bilirubin 0.2 mg/dL (0.2-1.0) 05/14/18 10:00 AST 26 U/L (15-37) 05/14/18 10:00 ALT 44 U/L (12-78) 05/14/18 10:00 Alkaline Phosphatase 106 U/L (45-117) D 05/14/18 10:00 Total Protein 7.1 g/dl (6.4-8.2) 05/14/18 10:00 Albumin 3.4 g/dl (3.4-5.0) 05/14/18 10:00 Current Medications Generic Name Dose Route Start Last Admin Trade Name Freq PRN Reason Stop Dose Admin Acetaminophen 650 mg 05/14/18 01:11 Tylenol - PO Q6H PRN PAIN LEVEL 1-5 Clindamycin HCl 300 mg 05/14/18 18:00 05/15/18 06:35 Cleocin - PO 300 mg Q6HPO KAMRAN Administration Enoxaparin Sodium 40 mg 05/14/18 10:00 05/14/18 09:54 Lovenox - SQ 40 mg DAILY KAMRAN Administration Ampicillin Sodium/Sulbactam 100 mls @ 200 mls/hr 05/14/18 02:00 05/15/18 01: 29 Sodium 3 gm/ Sodium Chloride IVPB 200 mls/hr Q8H-IV KAMRAN Administration Ibuprofen 600 mg 05/14/18 01:11 Motrin - PO Q6H PRN PAIN LEVEL 1-5 Morphine Sulfate 4 mg 05/14/18 01:11 05/15/18 06:37 Morphine Sulfate IVPUSH 4 mg Q4H PRN Administration PAIN LEVEL 7 - 10 Home Medications Medication Instructions Recorded Tamoxifen Citrate 05/15/18 PE:as per resident's note ASSESSMENT AND PLAN: Patient is a 43 y/o lady with h/o breast cancer s/p lumpectomy on tamoxifen who presented with pain of second toe and was found to have a fracture in middle and distal phalanxes. # Open fracture of 2nd left middle and distal phalanxes; S/P ORIF on cont IV Abx on clindamycin, Unasyn IV, ID on the case dr. Donovan, pain control. # H/o breast cancer. continue tamoxifen DVT PX: lovenox
--- NOTE | 2018-05-15 09:24 | PN ---
Progress Note, Physician Chief Complaint: left index finger History of Present Illness: 43 yo RHD female PMH Breast cancer on tamoxifen, who is accompanied by a family member, presents with She states that 20 minutes prior to arrival she got the distal aspect of her second digit right hand caught in a folding metal chair. stable post operatively. - Current Medication List Current Medications: Active Medications Acetaminophen (Tylenol -) 650 mg PO Q6H PRN PRN Reason: PAIN LEVEL 1-5 Clindamycin HCl (Cleocin -) 300 mg PO Q6HPO KAMRAN Last Admin: 05/15/18 06:35 Dose: 300 mg Enoxaparin Sodium (Lovenox -) 40 mg SQ DAILY KAMRAN Last Admin: 05/14/18 09:54 Dose: 40 mg Ampicillin Sodium/Sulbactam (Sodium 3 gm/ Sodium Chloride) 100 mls @ 200 mls/ hr IVPB Q8H-IV KAMRAN Last Admin: 05/15/18 01:29 Dose: 200 mls/hr Ibuprofen (Motrin -) 600 mg PO Q6H PRN PRN Reason: PAIN LEVEL 1-5 Morphine Sulfate (Morphine Sulfate) 4 mg IVPUSH Q4H PRN PRN Reason: PAIN LEVEL 7 - 10 Last Admin: 05/15/18 06:37 Dose: 4 mg - Objective Vital Signs: Vital Signs Temperature 98.8 F 05/15/18 06:00 Pulse Rate 65 05/15/18 06:00 Respiratory Rate 20 05/15/18 06:00 Blood Pressure 102/51 05/15/18 06:00 O2 Sat by Pulse Oximetry (%) 97 05/14/18 21:00 Vital Signs Period Temp Pulse Resp BP Sys/Smith Pulse Ox Last 24 Hr 98.8 F-99.0 F 65-83 18-20 101-148/51-80 97 Labs: CBC, BMP 05/15/18 06:30 05/15/18 06:30 INR, PTT INR 0.98 (0.83-1.09) 05/13/18 20:30 Problem List - Problems (1) Crushing injury of left index finger, initial encounter Assessment/Plan: 43yo female with left index finger crush dislocation of distal interphalangeal joint with distal and middle phalanx fractures and nail matrix avulsion POD#2 s/ p ORIF of left index finger open fractures. Diet as tolerated IV antibiotics per ID encourage incentive spirometry elevation of Arm above the heart D/C plan on Oral antibiotics Will follow Code(s): S67.191A - CRUSHING INJURY OF LEFT INDEX FINGER, INITIAL ENCOUNTER (2) Finger laceration Code(s): S61.219A - LACERATION W/O FB OF UNSP FINGER W/O DAMAGE TO NAIL, INIT Qualifiers: Encounter type: initial encounter Finger: index finger Damage to nail status: with damage Foreign body presence: without foreign body Laterality: left Qualified Code(s): S61.311A - Laceration without foreign body of left index finger with damage to nail, initial encounter (3) Open fracture of tuft of distal phalanx of finger Code(s): S62.639B - DISP FX OF DISTAL PHALANX OF UNSP FINGER, INIT FOR OPN FX (4) Dislocation of distal interphalangeal (DIP) joint of left index finger Code(s): S63.291A - DISLOCATION OF DISTAL INTERPHALN JOINT OF L IDX FNGR, INIT Qualifiers: Encounter type: initial encounter Qualified Code(s): S63.291A - Dislocation of distal interphalangeal joint of left index finger, initial encounter
[2018-05-15] MEDS: SENNOSIDES 8.6MG TABLET (FP) PO SCH ×2 (09:57→22:18)
[2018-05-15] MEDS: ENOXAPARIN NA (PORCINE) 40 MG/0.4 ML DISP.SYRIN SQ SCH (09:57)
[2018-05-15] MEDS: DOCUSATE SODIUM 100 MG CAPSULE (FP) PO SCH ×2 (09:57→22:18)
[2018-05-15] MEDS: IBUPROFEN 600 MG TABLET (FP) PO PRN ×2 (10:00→17:26)
[2018-05-15] MEDS: INSULIN SLIDING SCALE (NOVOLOG) 1 VIAL SQ SCH ×3 (11:17→22:24)
--- NOTE | 2018-05-15 13:41 | PN ---
Progress Note, Physician History of Present Illness: patient doing well post op no issues - Current Medication List Current Medications: Active Medications Acetaminophen (Tylenol -) 650 mg PO Q6H PRN PRN Reason: PAIN LEVEL 1-5 Clindamycin HCl (Cleocin -) 300 mg PO Q6HPO COUNT INCLUDES THE [facility] Last Admin: 05/15/18 11:48 Dose: 300 mg Docusate Sodium (Colace -) 100 mg PO BID COUNT INCLUDES THE [facility] Last Admin: 05/15/18 09:57 Dose: 100 mg Enoxaparin Sodium (Lovenox -) 40 mg SQ DAILY COUNT INCLUDES THE [facility] Last Admin: 05/15/18 09:57 Dose: 40 mg Ampicillin Sodium/Sulbactam (Sodium 3 gm/ Sodium Chloride) 100 mls @ 200 mls/ hr IVPB Q8H-IV COUNT INCLUDES THE [facility] Last Admin: 05/15/18 09:57 Dose: 200 mls/hr Ibuprofen (Motrin -) 600 mg PO Q6H PRN PRN Reason: PAIN LEVEL 1-5 Last Admin: 05/15/18 10:00 Dose: 600 mg Insulin Aspart (Novolog Vial Sliding Scale -) 1 vial SQ [facility]; Protocol Last Admin: 05/15/18 11:17 Dose: Not Given Morphine Sulfate (Morphine Sulfate) 4 mg IVPUSH Q4H PRN PRN Reason: PAIN LEVEL 7 - 10 Last Admin: 05/15/18 06:37 Dose: 4 mg Senna (Senna -) 1 tab PO BID COUNT INCLUDES THE [facility] Last Admin: 05/15/18 09:57 Dose: 1 tab Tamoxifen Citrate (Tamoxifen Citrate) 20 mg PO DAILY COUNT INCLUDES THE [facility] - Objective Vital Signs: Vital Signs Temperature 98.8 F 05/15/18 09:00 Pulse Rate 70 05/15/18 09:00 Respiratory Rate 20 05/15/18 09:00 Blood Pressure 122/58 05/15/18 09:00 O2 Sat by Pulse Oximetry (%) 98 05/15/18 09:00 Constitutional: Yes: No Distress, Calm Cardiovascular: Yes: Regular Rate and Rhythm Respiratory: Yes: Regular, CTA Bilaterally Gastrointestinal: Yes: Normal Bowel Sounds, Soft Musculoskeletal: Yes: WNL Extremities: Yes: Other Wound/Incision: Yes: Dressing Dry and Intact Neurological: Yes: Alert, Oriented Psychiatric: Yes: Alert, Oriented Labs: CBC, BMP 05/15/18 06:30 05/15/18 06:30 INR, PTT INR 0.98 (0.83-1.09) 05/13/18 20:30 Assessment/Plan Problem List - Problems (1) Crushing injury of left index finger, initial encounter Code(s): S67.191A - CRUSHING INJURY OF LEFT INDEX FINGER, INITIAL ENCOUNTER (2) Finger laceration Code(s): S61.219A - LACERATION W/O FB OF UNSP FINGER W/O DAMAGE TO NAIL, INIT Qualifiers: Encounter type: initial encounter Finger: index finger Damage to nail status: with damage Foreign body presence: without foreign body Laterality: left Qualified Code(s): S61.311A - Laceration without foreign body of left index finger with damage to nail, initial encounter (3) Open fracture of tuft of distal phalanx of finger Code(s): S62.639B - DISP FX OF DISTAL PHALANX OF UNSP FINGER, INIT FOR OPN FX (4) Dislocation of distal interphalangeal (DIP) joint of left index finger Code(s): S63.291A - DISLOCATION OF DISTAL INTERPHALN JOINT OF L IDX FNGR, INIT Qualifiers: Encounter type: initial encounter Qualified Code(s): S63.291A - Dislocation of distal interphalangeal joint of left index finger, initial encounter plan continue current abx await for cx report wound care rest as per the surgical team
[2018-05-15] MEDS: TAMOXIFEN CITRATE 10 MG TABLET PO SCH (14:04)
--- NOTE | 2018-05-15 15:07 | PN ---
Physical Exam: SUBJECTIVE: Patient seen and examined at bedside. Complains of constipation, pain controlled, otherwise no acute complaints s/p ORIF of L index finger. Good appetite. Thoracic spinal pain improved. OBJECTIVE: Vital Signs Period Temp Pulse Resp BP Sys/Smith Pulse Ox Last 24 Hr 98.8 F-99.0 F 65-83 18-20 101-148/51-80 97-98 GENERAL: A&Ox3, NAD HEAD: NC/AT EYES: PERRLA, EOMI ENT: moist mucous membranes NECK: Trachea midline, full range of motion, supple. LUNGS: Breath sounds equal, clear to auscultation bilaterally, no wheezes, no crackles, no accessory muscle use. HEART: Regular rate and rhythm, S1, S2 without murmur, rub or gallop. ABDOMEN: Soft, nontender, nondistended, normoactive bowel sounds, no guarding, no rebound, no hepatosplenomegaly, no masses. MUSCULOSKELETAL: tenderness over and to the right of vertebral body ~T7-8 EXTREMITIES: 2+ pulses, warm, well-perfused, no edema. Surgical dressing of L distal UE. NEUROLOGICAL: Cranial nerves II through XII grossly intact. 5/5 strength throughout, sensorium intact. Normal speech and gait. PSYCH: Normal mood, normal affect. SKIN: Warm, dry, normal turgor, no rashes or lesions noted Laboratory Results - last 24 hr 05/15/18 05/15/18 05/15/18 06:30 06:30 06:30 WBC 7.3 RBC 3.89 Hgb 11.0 Hct 33.2 MCV 85.4 MCH 28.2 MCHC 33.0 RDW 19.0 H Plt Count 185 MPV 9.2 Absolute Neuts (auto) 3.8 Neutrophils % 51.9 D Lymphocytes % 40.4 H D Monocytes % 6.6 D Eosinophils % 0.6 D Basophils % 0.5 D Nucleated RBC % 0 Sodium 139 Potassium 4.0 Chloride 109 H Carbon Dioxide 23 Anion Gap 7 L BUN 12 Creatinine 0.5 L Creat Clearance w eGFR > 60 POC Glucometer Random Glucose 110 H Hemoglobin A1c % 6.8 H Calcium 8.0 L 05/15/18 11:16 WBC RBC Hgb Hct MCV MCH MCHC RDW Plt Count MPV Absolute Neuts (auto) Neutrophils % Lymphocytes % Monocytes % Eosinophils % Basophils % Nucleated RBC % Sodium Potassium Chloride Carbon Dioxide Anion Gap BUN Creatinine Creat Clearance w eGFR POC Glucometer 132 Random Glucose Hemoglobin A1c % Calcium Active Medications Generic Name Dose Route Start Last Admin Trade Name Freq PRN Reason Stop Dose Admin Acetaminophen 650 mg 05/14/18 01:11 Tylenol - PO Q6H PRN PAIN LEVEL 1-5 Clindamycin HCl 300 mg 05/14/18 18:00 05/15/18 11:48 Cleocin - PO 300 mg Q6HPO KAMRAN Administration Docusate Sodium 100 mg 05/15/18 10:00 05/15/18 09:57 Colace - PO 100 mg BID KAMRAN Administration Enoxaparin Sodium 40 mg 05/14/18 10:00 05/15/18 09:57 Lovenox - SQ 40 mg DAILY KAMRAN Administration Ampicillin Sodium/Sulbactam 100 mls @ 200 mls/hr 05/14/18 02:00 05/15/18 09: 57 Sodium 3 gm/ Sodium Chloride IVPB 200 mls/hr Q8H-IV KARMAN Administration Ibuprofen 600 mg 05/14/18 01:11 05/15/18 10:00 Motrin - PO 600 mg Q6H PRN Administration PAIN LEVEL 1-5 Insulin Aspart 1 vial 05/15/18 11:00 05/15/18 11:17 Novolog Vial Sliding Scale - SQ Not Given ACHS [facility] Protocol Morphine Sulfate 4 mg 05/14/18 01:11 05/15/18 06:37 Morphine Sulfate IVPUSH 4 mg Q4H PRN Administration PAIN LEVEL 7 - 10 Senna 1 tab 05/15/18 10:00 05/15/18 09:57 Senna - PO 1 tab BID KAMRAN Administration Tamoxifen Citrate 20 mg 05/15/18 12:30 05/15/18 14:04 Tamoxifen Citrate PO 20 mg DAILY KAMRAN Administration ASSESSMENT/PLAN: 43 y/o F w/ PMHx L breast Ca s/p lumpectomy w/o RT on Tamoxifen since Jun 03 admitted for open Fx of left index finger s/p ORIF. #L index finger ORIF POD #2 -Dr. Miranda on case -TDap in ED -Day 2 Unasyn, requires 3-[address] Miranda -additional Clindamycin [address] Donovan for MRSA coverage -Tylenol, Motrin -Morphine 4 mg q4 PRN #L Breast Ca on Tamoxifen -thoracic spinal tenderness noted on exam -T-spine XR totally benign -not pursuing MRI T-spine at this time -cont Tamoxifen 20 PO daily #fasting glucose 155 -HbA1c 6.8 -patient informed she is diabetic, had thorough discussion with all questions asked and answered -lipid panel, TFTs pending -SSI #constipation -senna/colace #FEN -no IVF -lytes wnl -regular diet #DVT PPx -Lovenox 40 SQ daily #dispo -med/surg Visit type - Emergency Visit Emergency Visit: No - New Patient This patient is new to me today: No - Critical Care Critical Care patient: No
--- NOTE | 2018-05-15 17:21 | OP ---
DATE OF OPERATION: 05/13/2018 PREOPERATIVE DIAGNOSIS: Left index finger and middle phalanx fractures. POSTOPERATIVE DIAGNOSIS: Left index finger and middle phalanx fractures. PROCEDURE: Open reduction and internal fixation, left index finger, distal and middle phalanx, with Karis wire fixation. ATTENDING SURGEON: Burke Miranda MD ANGULAR DEVELOPER: None. ANESTHESIOLOGIST: Nikky Millan MD ANESTHESIA: General with local. Local consisted of 0.5% Marcaine, a total of 10 mL given in digital block fashion. ESTIMATED BLOOD LOSS: 2 mL. INTRAVENOUS FLUID: Crystalloid, 500 mL. TOURNIQUET PRESSURE: 250 mmHg. TOURNIQUET TIME: 28 minutes. BRIEF FINDINGS: Displaced comminuted base fracture of the distal phalanx and subchondral and middle phalanx fracture with a floating distal interphalangeal joint. Nail matrix was also disrupted and nail plate avulsed. Karis wire 0.045 x1 was the implant. INDICATIONS: Patient is a 43-year-old female presenting with a crush injury to the left index finger in a metal folding chair. She was counseled regarding on risks, benefits, and alternatives to surgical fixation. She signed informed consent and was taken to the procedure. DESCRIPTION OF PROCEDURE: The patient was brought to the operating room. She was placed in supine position on the operating table with the left arm extended at 90 degrees perpendicular to the bodys axis. The lower extremities had SCDs placed to compression. Patient received intravenous antibiotics prior to the start of surgery. Patient was induced with general anesthesia and endotracheally intubated, at which point we proceeded first with a renewed digital block with Marcaine for the left index finger. The finger was then prepped and draped into a standard surgical field. A formal time-out was done and completed, identifying the operative site and digit. With all parties in agreement, we began first with a dariela for additional incision and under the scan, the fracture was documented. It appeared to be a basilar fracture of the distal phalanx for the left index finger as well as a subchondral fracture at the neck of the middle phalanx for the floating distal interphalangeal joint. This was first pinned from the midline axis of the distal phalanx fragment, through and through of the distal phalanx with reduction and alignment of the fracture. An incision was made to gain additional reduction at the condylar fracture to rotate it into position, at which point, it was pinned through and through the middle phalanx mid body fracture into the proximal phalanx mid body. With this fixation in the midline done, compression was applied with an additional K-wire fixation. When this was complete, the scan was used to check the alignment of the fracture reduction. With this complete, the site was irrigated of all fracture fragments and hematoma, and the skin was closed with 4-0 nylon in interrupted fashion. The skin was cleaned. A sterile dressing was placed, at which point the hand was splinted in a position of safety for the digits and the thumb was left free. Patient was awakened from general anesthesia, having tolerated the procedure well. She was given instructions to follow up in a period of 1 week. MD ZOIE Sanchez/[id number]
[2018-05-15] MEDS ORDERED: INSULIN (NOVOLOG) ASPART 100 UNITS/ML 10ML VIAL ONE (21:03)
[2018-05-16] MEDS ORDERED: PT OWN MED DRAWER 7, Y5N ONE ×2 (02:59→09:36)
[2018-05-16] MEDS: AMPICILLIN NA/SULBACTAM NA 3 GM in SODIUM CHLORIDE 100 ML IVPB SCH ×2 (03:03→10:20)
[2018-05-16] MEDS: CLINDAMYCIN HCL 150 MG CAPSULE (FP) PO SCH ×2 (06:46→12:20)
[2018-05-16] MEDS: INSULIN SLIDING SCALE (NOVOLOG) 1 VIAL SQ SCH ×2 (06:50→12:05)
[2018-05-16] MEDS ORDERED: ACETAMINOPHEN 325 MG TABLET (FP) PO PRN (08:03)
[2018-05-16] MEDS ORDERED: IBUPROFEN 600 MG TABLET (FP) PO PRN (08:03)
--- NOTE | 2018-05-16 08:26 | PN ---
Teaching Attending Note Name of Resident: Mohan Siddiqui ATTENDING PHYSICIAN STATEMENT I saw and evaluated the patient. I reviewed the resident's note and discussed the case with the resident. I agree with the resident's findings and plan as documented. SUBJECTIVE: Patient is comfortable, with no acute distress. OBJECTIVE: Vital Signs Temperature 98.9 F 05/16/18 06:00 Pulse Rate 57 L 05/16/18 06:00 Respiratory Rate 20 05/16/18 06:00 Blood Pressure 124/52 05/16/18 06:00 O2 Sat by Pulse Oximetry (%) 98 05/15/18 21:00 CBCD WBC 7.3 K/mm3 (4.0-10.0) 05/15/18 06:30 RBC 3.89 M/mm3 (3.60-5.2) 05/15/18 06:30 Hgb 11.0 GM/dL (10.7-15.3) 05/15/18 06:30 Hct 33.2 % (32.4-45.2) 05/15/18 06:30 MCV 85.4 fl (80-96) 05/15/18 06:30 MCHC 33.0 g/dl (32.0-36.0) 05/15/18 06:30 RDW 19.0 % (11.6-15.6) H 05/15/18 06:30 Plt Count 185 K/MM3 (134-434) 05/15/18 06:30 MPV 9.2 fl (7.5-11.1) 05/15/18 06:30 CMP Sodium 139 mmol/L (136-145) 05/15/18 06:30 Potassium 4.0 mmol/L (3.5-5.1) 05/15/18 06:30 Chloride 109 mmol/L (98-107) H 05/15/18 06:30 Carbon Dioxide 23 mmol/L (21-32) 05/15/18 06:30 Anion Gap 7 MMOL/L (8-16) L 05/15/18 06:30 BUN 12 mg/dL (7-18) 05/15/18 06:30 Creatinine 0.5 mg/dL (0.55-1.02) L 05/15/18 06:30 Creat Clearance w eGFR > 60 (>60) 05/15/18 06:30 Random Glucose 110 mg/dL (74-106) H 05/15/18 06:30 Calcium 8.0 mg/dL (8.5-10.1) L 05/15/18 06:30 Total Bilirubin 0.2 mg/dL (0.2-1.0) 05/14/18 10:00 AST 26 U/L (15-37) 05/14/18 10:00 ALT 44 U/L (12-78) 05/14/18 10:00 Alkaline Phosphatase 106 U/L (45-117) D 05/14/18 10:00 Total Protein 7.1 g/dl (6.4-8.2) 05/14/18 10:00 Albumin 3.4 g/dl (3.4-5.0) 05/14/18 10:00 Current Medications Generic Name Dose Route Start Last Admin Trade Name Freq PRN Reason Stop Dose Admin Acetaminophen 650 mg 05/16/18 08:03 Tylenol - PO Q6H PRN PAIN LEVEL 4 - 6 Clindamycin HCl 300 mg 05/14/18 18:00 05/16/18 06:46 Cleocin - PO 300 mg Q6HPO KAMRAN Administration Docusate Sodium 100 mg 05/15/18 10:00 05/15/18 22:18 Colace - PO 100 mg BID KAMRAN Administration Enoxaparin Sodium 40 mg 05/14/18 10:00 05/15/18 09:57 Lovenox - SQ 40 mg DAILY KAMRAN Administration Ampicillin Sodium/Sulbactam 100 mls @ 200 mls/hr 05/14/18 02:00 05/16/18 03: 03 Sodium 3 gm/ Sodium Chloride IVPB 200 mls/hr Q8H-IV KAMRAN Administration Ibuprofen 600 mg 05/16/18 08:03 Motrin - PO Q6H PRN PAIN LEVEL 4 - 6 Insulin Aspart 1 vial 05/15/18 11:00 05/16/18 06:50 Novolog Vial Sliding Scale - SQ Not Given ACHS [facility] Protocol Morphine Sulfate 4 mg 05/14/18 01:11 05/15/18 22:17 Morphine Sulfate IVPUSH 4 mg Q4H PRN Administration PAIN LEVEL 7 - 10 Senna 1 tab 05/15/18 10:00 05/15/18 22:18 Senna - PO 1 tab BID KAMRAN Administration Tamoxifen Citrate 20 mg 05/15/18 12:30 05/15/18 14:04 Tamoxifen Citrate PO 20 mg DAILY KAMRAN Administration Home Medications Medication Instructions Recorded Tamoxifen Citrate 05/15/18 PE; per resident's note. ASSESSMENT AND PLAN: Patient is a 43 y/o lady with h/o breast cancer s/p lumpectomy on tamoxifen who presented with pain of second toe and was found to have a fracture in middle and distal phalanxes. # Open fracture of 2nd left middle and distal phalanxes; S/P ORIF , patient is being discharged home on oral Abx on clindamycin, Augmentin po , discussed with ID and and dr. Donovan. Discharge patient home. with follow up visit to # H/o breast cancer. continue tamoxifen
[2018-05-16 08:31] LABS: BASO % 0.5 % (0-2.0); EOS % 2.7 % (0-4.5); HEMATOCRIT 35.8 % (32.4-45.2); HEMOGLOBIN 11.6 GM/dL (10.7-15.3); LYMPH % 44.9 % (8-40); MCH 27.9 pg (25.7-33.7); MCHC 32.6 g/dl (32.0-36.0); MEAN CELL VOLUME 85.7 fl (80-96); MEAN PLT VOLUME 9.8 fl (7.5-11.1); MONO % 7.7 % (3.8-10.2); NEUT % 44.2 % (42.8-82.8); PLATELET COUNT 192 K/MM3 (134-434); RBC 4.17 M/mm3 (3.60-5.2); RDW 18.9 % (11.6-15.6); WHITE BLOOD COUNT 6.5 K/mm3 (4.0-10.0)
[2018-05-16 08:51] LABS: CHLORIDE 107 mmol/L (98-107); SODIUM 139 mmol/L (136-145)
[2018-05-16 09:17] LABS: ANION GAP 10 MMOL/L (8-16); BLOOD UREA NITROGEN 14 mg/dL (7-18); CALCIUM 8.4 mg/dL (8.5-10.1); CHOLESTEROL 161 mg/dL (50-200); CO2 22 mmol/L (21-32); CREATININE 0.5 mg/dL (0.55-1.02); GLUCOSE,RANDOM 97 mg/dL (74-106); HDL CHOLESTEROL 56 mg/dL (40-60); TRIGLYCERIDES 143 mg/dL (35-160)
--- NOTE | 2018-05-16 09:33 | PN ---
Progress Note, Physician Chief Complaint: left index finger History of Present Illness: 43 yo RHD female PMH Breast cancer on tamoxifen, who is accompanied by a family member, presents with She states that 20 minutes prior to arrival she got the distal aspect of her second digit right hand caught in a folding metal chair. stable post operatively. - Current Medication List Current Medications: Active Medications Acetaminophen (Tylenol -) 650 mg PO Q6H PRN PRN Reason: PAIN LEVEL 4 - 6 Clindamycin HCl (Cleocin -) 300 mg PO Q6HPO [facility] Last Admin: 05/16/18 06:46 Dose: 300 mg Docusate Sodium (Colace -) 100 mg PO BID [facility] Last Admin: 05/15/18 22:18 Dose: 100 mg Enoxaparin Sodium (Lovenox -) 40 mg SQ DAILY [facility] Last Admin: 05/15/18 09:57 Dose: 40 mg Ampicillin Sodium/Sulbactam (Sodium 3 gm/ Sodium Chloride) 100 mls @ 200 mls/ hr IVPB Q8H-IV [facility] Last Admin: 05/16/18 03:03 Dose: 200 mls/hr Ibuprofen (Motrin -) 600 mg PO Q6H PRN PRN Reason: PAIN LEVEL 4 - 6 Insulin Aspart (Novolog Vial Sliding Scale -) 1 vial SQ ACHS [facility]; Protocol Last Admin: 05/16/18 06:50 Dose: Not Given Morphine Sulfate (Morphine Sulfate) 4 mg IVPUSH Q4H PRN PRN Reason: PAIN LEVEL 7 - 10 Last Admin: 05/15/18 22:17 Dose: 4 mg Senna (Senna -) 1 tab PO BID [facility] Last Admin: 05/15/18 22:18 Dose: 1 tab Tamoxifen Citrate (Tamoxifen Citrate) 20 mg PO DAILY [facility] Last Admin: 05/15/18 14:04 Dose: 20 mg - Objective Vital Signs: Vital Signs Temperature 98.9 F 05/16/18 06:00 Pulse Rate 57 L 05/16/18 06:00 Respiratory Rate 20 05/16/18 06:00 Blood Pressure 124/52 05/16/18 06:00 O2 Sat by Pulse Oximetry (%) 98 05/15/18 21:00 Vital Signs Period Temp Pulse Resp BP Sys/Smith Pulse Ox Last 24 Hr 98.3 F-99.2 F 57-64 20-20 100-130/46-68 98 Constitutional: Yes: Well Nourished, No Distress, Calm Eyes: Yes: Conjunctiva Clear, EOM Intact HENT: Yes: Atraumatic, Normocephalic Neck: Yes: Supple, Trachea Midline Cardiovascular: Yes: Regular Rate and Rhythm, S1, S2 Respiratory: Yes: Regular, CTA Bilaterally Gastrointestinal: Yes: Normal Bowel Sounds, Soft, Abdomen, Obese. No: Tenderness Genitourinary: No: CVA Tenderness - Left, CVA Tenderness - Right Edema: LUE: 2+ Peripheral Pulses: Left Radial: 2+, Right Radial: 2+ Wound/Incision: Yes: Clean/Dry, Well Approximated, Dressing Dry and Intact Labs: CBC, BMP 05/16/18 06:45 05/16/18 06:45 INR, PTT INR 0.98 (0.83-1.09) 05/13/18 20:30 Problem List - Problems (1) Crushing injury of left index finger, initial encounter Assessment/Plan: 43yo female with left index finger crush dislocation of distal interphalangeal joint with distal and middle phalanx fractures and nail matrix avulsion POD#3 s/ p ORIF of left index finger open fractures. Diet as tolerated IV antibiotics per ID keep splint clean, dry and intact until follow-up encourage incentive spirometry elevation of Arm above the heart D/C plan on Oral antibiotics Will follow Code(s): S67.191A - CRUSHING INJURY OF LEFT INDEX FINGER, INITIAL ENCOUNTER (2) Finger laceration Code(s): S61.219A - LACERATION W/O FB OF UNSP FINGER W/O DAMAGE TO NAIL, INIT Qualifiers: Encounter type: initial encounter Finger: index finger Damage to nail status: with damage Foreign body presence: without foreign body Laterality: left Qualified Code(s): S61.311A - Laceration without foreign body of left index finger with damage to nail, initial encounter (3) Open fracture of tuft of distal phalanx of finger Code(s): S62.639B - DISP FX OF DISTAL PHALANX OF UNSP FINGER, INIT FOR OPN FX (4) Dislocation of distal interphalangeal (DIP) joint of left index finger Code(s): S63.291A - DISLOCATION OF DISTAL INTERPHALN JOINT OF L IDX FNGR, INIT Qualifiers: Encounter type: initial encounter Qualified Code(s): S63.291A - Dislocation of distal interphalangeal joint of left index finger, initial encounter
[2018-05-16] MEDS: SENNOSIDES 8.6MG TABLET (FP) PO SCH (10:04)
[2018-05-16] MEDS: ENOXAPARIN NA (PORCINE) 40 MG/0.4 ML DISP.SYRIN SQ SCH (10:04)
[2018-05-16] MEDS: DOCUSATE SODIUM 100 MG CAPSULE (FP) PO SCH (10:04)
[2018-05-16] MEDS: morphine SULFATE 4 MG/ML VIAL IVPUSH PRN (10:05)
[2018-05-16] MEDS: TAMOXIFEN CITRATE 10 MG TABLET PO SCH (10:16)
--- NOTE | 2018-05-16 11:45 | PN ---
Progress Note, Physician History of Present Illness: patient doing well no issues - Current Medication List Current Medications: Active Medications Acetaminophen (Tylenol -) 650 mg PO Q6H PRN PRN Reason: PAIN LEVEL 4 - 6 Clindamycin HCl (Cleocin -) 300 mg PO Q6HPO [facility] Last Admin: 05/16/18 06:46 Dose: 300 mg Docusate Sodium (Colace -) 100 mg PO BID [facility] Last Admin: 05/16/18 10:04 Dose: 100 mg Enoxaparin Sodium (Lovenox -) 40 mg SQ DAILY [facility] Last Admin: 05/16/18 10:04 Dose: 40 mg Ampicillin Sodium/Sulbactam (Sodium 3 gm/ Sodium Chloride) 100 mls @ 200 mls/ hr IVPB Q8H-IV [facility] Last Admin: 05/16/18 10:20 Dose: 200 mls/hr Ibuprofen (Motrin -) 600 mg PO Q6H PRN PRN Reason: PAIN LEVEL 4 - 6 Insulin Aspart (Novolog Vial Sliding Scale -) 1 vial SQ [facility]; Protocol Last Admin: 05/16/18 06:50 Dose: Not Given Morphine Sulfate (Morphine Sulfate) 4 mg IVPUSH Q4H PRN PRN Reason: PAIN LEVEL 7 - 10 Last Admin: 05/16/18 10:05 Dose: 4 mg Senna (Senna -) 1 tab PO BID [facility] Last Admin: 05/16/18 10:04 Dose: 1 tab Tamoxifen Citrate (Tamoxifen Citrate) 20 mg PO DAILY [facility] Last Admin: 05/16/18 10:16 Dose: 20 mg - Objective Vital Signs: Vital Signs Temperature 98.9 F 05/16/18 06:00 Pulse Rate 57 L 05/16/18 06:00 Respiratory Rate 20 05/16/18 06:00 Blood Pressure 124/52 05/16/18 06:00 O2 Sat by Pulse Oximetry (%) 98 05/15/18 21:00 Constitutional: Yes: No Distress, Calm Cardiovascular: Yes: Regular Rate and Rhythm Respiratory: Yes: Regular, CTA Bilaterally Gastrointestinal: Yes: Normal Bowel Sounds, Soft Musculoskeletal: Yes: WNL Extremities: Yes: Other Wound/Incision: Yes: Dressing Dry and Intact Neurological: Yes: Alert, Oriented Labs: CBC, BMP 05/16/18 06:45 05/16/18 06:45 INR, PTT INR 0.98 (0.83-1.09) 05/13/18 20:30 Assessment/Plan Problem List - Problems (1) Crushing injury of left index finger, initial encounter Code(s): S67.191A - CRUSHING INJURY OF LEFT INDEX FINGER, INITIAL ENCOUNTER (2) Finger laceration Code(s): S61.219A - LACERATION W/O FB OF UNSP FINGER W/O DAMAGE TO NAIL, INIT Qualifiers: Encounter type: initial encounter Finger: index finger Damage to nail status: with damage Foreign body presence: without foreign body Laterality: left Qualified Code(s): S61.311A - Laceration without foreign body of left index finger with damage to nail, initial encounter (3) Open fracture of tuft of distal phalanx of finger Code(s): S62.639B - DISP FX OF DISTAL PHALANX OF UNSP FINGER, INIT FOR OPN FX (4) Dislocation of distal interphalangeal (DIP) joint of left index finger Code(s): S63.291A - DISLOCATION OF DISTAL INTERPHALN JOINT OF L IDX FNGR, INIT Qualifiers: Encounter type: initial encounter Qualified Code(s): S63.291A - Dislocation of distal interphalangeal joint of left index finger, initial encounter plan continue current abx if surgery clears her then she can be discharged on augmentin 875 mg bid for 5 more days and clinda 300 mg tid for 5 more days wound care rest as per the team
[2018-05-16 15:02] VITALS: BP 130/57; PULSE 77; TEMP 98.7
--- NOTE | 2018-05-16 17:27 | DS ---
Physical Exam: SUBJECTIVE: Patient seen and examined at bedside. S/p ORIF of L index finger. Has post-surgical pain, otherwise no complaints. OBJECTIVE: Vital Signs Period Temp Pulse Resp BP Sys/Smith Pulse Ox Last 24 Hr 98.3 F-99.2 F 57-77 18-20 100-130/46-68 98 PHYSICAL EXAM GENERAL: A&Ox3, NAD HEAD: NC/AT EYES: PERRLA, EOMI ENT: moist mucous membranes NECK: Trachea midline, full range of motion, supple. LUNGS: Breath sounds equal, clear to auscultation bilaterally, no wheezes, no crackles, no accessory muscle use. HEART: Regular rate and rhythm, S1, S2 without murmur, rub or gallop. ABDOMEN: Soft, nontender, nondistended, normoactive bowel sounds, no guarding, no rebound, no hepatosplenomegaly, no masses. MUSCULOSKELETAL: thoracic tenderness resolved EXTREMITIES: 2+ pulses, warm, well-perfused, no edema. Surgical dressing of L distal UE. NEUROLOGICAL: Cranial nerves II through XII grossly intact. 5/5 strength throughout, sensorium intact. Normal speech and gait. PSYCH: Normal mood, normal affect. SKIN: Warm, dry, normal turgor, no rashes or lesions noted LABS Laboratory Results - last 24 hr 05/15/18 05/16/18 05/16/18 22:21 06:45 06:45 WBC 6.5 RBC 4.17 Hgb 11.6 Hct 35.8 MCV 85.7 MCH 27.9 MCHC 32.6 RDW 18.9 H Plt Count 192 MPV 9.8 Absolute Neuts (auto) 2.9 Neutrophils % 44.2 Lymphocytes % 44.9 H Monocytes % 7.7 Eosinophils % 2.7 D Basophils % 0.5 Nucleated RBC % 0 Sodium 139 Potassium 4.0 Chloride 107 Carbon Dioxide 22 Anion Gap 10 BUN 14 Creatinine 0.5 L Creat Clearance w eGFR > 60 POC Glucometer 134 Random Glucose 97 Calcium 8.4 L Triglycerides 143 Cholesterol 161 Total LDL Cholesterol 92 HDL Cholesterol 56 TSH 3.10 Free T4 1.03 05/16/18 05/16/18 06:47 12:01 WBC RBC Hgb Hct MCV MCH MCHC RDW Plt Count MPV Absolute Neuts (auto) Neutrophils % Lymphocytes % Monocytes % Eosinophils % Basophils % Nucleated RBC % Sodium Potassium Chloride Carbon Dioxide Anion Gap BUN Creatinine Creat Clearance w eGFR POC Glucometer 102 92 Random Glucose Calcium Triglycerides Cholesterol Total LDL Cholesterol HDL Cholesterol TSH Free T4 HOSPITAL COURSE: Date of Admission:05/13/18 Patient is a 43 y/o F w/ PMHx L breast Ca s/p lumpectomy w/o RT on Tamoxifen since May 2017, admitted for open Fx of left index finger via an accident involving a metal folding chair. Finger XR confirmed Fx of the middle and distal phalanges. Received TDap booster in ED. Surgery and ID She underwent OR/ IF without complication and was given a course of IV Unasyn and placed on oral clindamycin. During hospitalization, was discovered to be diabetic with HbA1c of 6.8% and placed on sliding scale insulin; care associate was consulted for diabetic diet education. Additionally complained of pain over the thoracic spine. Thoracic XR was ordered given her oncologic status, but this was totally benign and pain resolved shortly thereafter. She was discharged on Metformin with instructions for PCP followup and given a course of oral clindamycin and augmentin to complete, as well as followup with PCP and surgery for the fracture. Date of Discharge: 05/16/18 Minutes to complete discharge: 40 Discharge Summary Reason For Visit: OPEN FRACTURE OF TUFT OF DISTAL PHALANX OF FINGER Condition: Improved - Instructions Diet, Activity, Other Instructions: Postoperative instructions: You had a ORIF of left index finger on 05/13/[address] Burke Miranda of [facility]. Additionally, during your hospitalization, it was determined that you have diabetes based on a lab test ( HbA1c 6.8). Your primary care doctor, Dr. Clau Lockhart, [phone], was informed of this finding and you have been scheduled for followup with her on Jun 13 at 4pm. Activity: Resume your usual activities gradually, but no heavy exertion or lifting more than 10-15 pounds for 4-6 weeks. Please keep splint clean and dry until first followup appointment. Eat lightly at first, but advance to your usual diet as tolerated. Medications: You are being given prescriptions for the following antibiotics: Augmentin 875mg taken twice daily for 5 days Clindamycin 300mg taken every 6 hours (four times per day) for 5 days It is imperative that you take these medications exactly as prescribed to completion. For your newly diagnosed diabetes, we are prescribing you a one month supply of a drug called Metformin, to take once a day every day. Your primary care doctor will take over management of your diabetes when you have your appointment with her. Please resume your home Tamoxifen additionally. Pain: For pain, you may use and alternate Tylenol (acetaminophen) 1-2 pills and/ or ibuprofen 200 mg (1-3 pills) every 6 hours each as needed; this means that you can take one OR the other at 3-hour intervals. If you are prescribed a Tylenol/narcotic combination for severe pain, use it instead of plain Tylenol as needed and switch back when your pain starts decreasing. Do not take more than 4000 mg of acetaminophen in a day. Take medications as prescribed or indicated on the labeling. Follow-up: Call Dr. Miranda' office at [phone] to make your postop appointment (Sunday in approximately 2 weeks after surgery as advised). Clinic is held in the [facility] on the first floor of [facility]. Call the office if you have: * increasing pain not responsive to pain medication * fever of 101F or higher * unusual or increasing bleeding or drainage from wounds * increasing redness or swelling at wound sites Also, see your primary medical doctor within 1-2 weeks. Referrals: Clau Lockhart [Other] Burke Miranda MD [Staff Physician] - Disposition: HOME - Home Medications Comprehensive Discharge Medication List: Ambulatory Orders Tamoxifen Citrate 05/15/18 Amoxicillin/Potassium Clav [Augmentin 875-125 Tablet] 1 each PO BID #10 tablet 05/16/18 Clindamycin [Cleocin -] 300 mg PO Q6HPO #20 capsule 05/16/18 metFORMIN XR [Glucophage Xr -] 500 mg PO DAILY #30 tab.sr.24h 05/16/18 This patient is new to me today: No Emergency Visit: No Critical Care patient: No - Discharge Referral Referred to [facility] No
== END 2018-05-16 15:36 | disposition home or self-care (01) | DRG 316 ==
LOC: JER 17:52 → JERFT 17:52 → JERBED 23:40 → J6S 05-14 01:49
PROVIDERS: ADMIT Internal Medicine; ATTEND Internal Medicine
PROC: 0PSV04Z Reposition Left Finger Phalanx with Internal Fixation Device, Open Approach (ICD-10-PCS; principal; 2018-05-13 22:00)
DX: S62.631A Displaced fracture of distal phalanx of left index finger, initial encounter for closed fracture (principal); C50.919 Malignant neoplasm of unspecified site of unspecified female breast; S63.291A Dislocation of distal interphalangeal joint of left index finger, initial encounter; S67.191A Crushing injury of left index finger, initial encounter; S61.311A Laceration without foreign body of left index finger with damage to nail, initial encounter; X58.XXXA Exposure to other specified factors, initial encounter; M54.9 Dorsalgia, unspecified; K59.00 Constipation, unspecified; E11.9 Type 2 diabetes mellitus without complications; E66.8 Other obesity; Z68.41 Body mass index [BMI] 40.0-44.9, adult; Z79.810 Long term (current) use of selective estrogen receptor modulators (SERMs)
CPT/HCPCS: 36415; 72070-TC-FY; 73140-TC-LT-FY; 76000-TC-FY; 80048; 80053; 80061; 82962; 83036; 83721; 83735; 84100; 84439; 84443; 84703; 85025; 85610; 86850; 86900; 86901; 90715; 94760; 99285-25

== ENCOUNTER 2018-06-05 11:58 | Emergency (ER) | payer OTHER ==
[2018-06-05 12:01] VITALS: BP 101/40; PULSE 74; TEMP 98.2; BMI 41.0
--- NOTE | 2018-06-05 12:41 | PDOC ---
History of Present Illness - General Chief Complaint: Injury Stated Complaint: PCP SENT/LT HAND INJURY Time Seen by Provider: 06/05/18 12:29 - History of Present Illness Initial Comments: 43-year-old female presents for evaluation as per her hand surgeon for an x- ray. She was seen about 3 or 4 weeks ago for an open fracture in the emergency room of her left second finger taken to the OR and had an intramedullary K wire placed in her left second finger for fixation. She has no complaints 06/05/18 12:32 Past History - Past Medical History Allergies/Adverse Reactions: Allergies Allergy/AdvReac Type Severity Reaction Status Date / Time No Known Allergies Allergy Verified 06/05/18 12:01 Home Medications: Ambulatory Orders metFORMIN XR [Glucophage Xr -] 500 mg PO DAILY #30 tab.sr.24h 05/16/18 COPD: No - Suicide/Smoking/Psychosocial Hx Smoking History: Never smoked Have you smoked in the past 12 months: No Hx Alcohol Use: No Drug/Substance Use Hx: No Substance Use Type: None Review of Systems - Review of Systems All Other Systems: Reviewed and Negative *Physical Exam - Vital Signs Last Vital Signs Temp Pulse Resp BP Pulse Ox 98.2 F 74 18 101/40 99 06/05/18 11:59 06/05/18 11:59 06/05/18 11:59 06/05/18 11:59 06/05/18 11:59 - Physical Exam Comments: Left second finger skin color and temperature are normal there is a K wire from the tip of the finger with normal surrounding skin color and temperature of the wound is clean and dry and intact. Motion cannot be assessed she appears to have no gross sensory deficits 06/05/18 12:33 ED Treatment Course - RADIOLOGY Radiology Studies Ordered: Category Date Time Status FINGER(S) LEFT [RAD] Stat Radiology 06/05/18 12:31 Ordered Medical Decision Making - Medical Decision Making 06/05/18 12:41 Have discussed this with Dr. Miranda, who will see the patient in his office today. *DC/Admit/Observation/Transfer Diagnosis at time of Disposition: Finger fracture - Discharge Dispostion Disposition: HOME Condition at time of disposition: Stable Decision to Admit order: No - Referrals Referrals: ON STAFF,NOT [Primary Care Provider] - Burke Miranda MD [Staff Physician] - - Patient Instructions Additional Instructions: Report to the second floor in order to meet , who will further evaluate human treat you. I have discussed this with him and he is expecting you today right after you leave the emergency room - Post Discharge Activity
== END 2018-06-05 13:11 | disposition home or self-care (01) ==
LOC: JERFT 11:58
DX: Z48.01 Encounter for change or removal of surgical wound dressing (principal)
CPT/HCPCS: 73140-TC-LT-FY; 99281-25